=== PATIENT | female | born 1985 | race Caucasian/White ===

== ENCOUNTER 2018-04-27 09:41 | Outpatient (CLI) | payer OTHER ==
[~2018-04-27] VITALS: Ht 157.5 cm; Wt 95.5 kg
[2018-04-27 09:46] VITALS: BP 129/82; PULSE 94; RESP 16; Ht 157.5 cm; Wt 95.5 kg
--- NOTE | 2018-04-27 11:04 | TRIAGE ---
OB Triage Datetime Report Generated by CPN: 04/27/2018 11:03 Datetime: 04/27/2018 10:56 Pattern: Normal: <= 5 Contractions in 10 Minutes Resting Tone [place]: Relaxed Contraction Comments: no uc Heart Rate FHR Baseline Rate: 145 Monitor Mode: External US Variability: Moderate 6-25 bpm Accelerations: 15X15 Decelerations: None Category: Category I Pain Assessment Pain Presence: None/Denies Pain Type: N/A Datetime: 04/27/2018 10:06 Labor Evaluation Frequency: x1 Monitor Mode: External Duration (sec)2399: 50 Quality: Mild Pattern: Normal: <= 5 Contractions in 10 Minutes Resting Tone [place]: Relaxed Heart Rate FHR Baseline Rate: 145 Monitor Mode: External US Variability: Moderate 6-25 bpm Decelerations: None Category: Category I Pain Assessment Pain Presence: None/Denies Pain Type: N/A Datetime: 04/27/2018 09:49 Assessment Type: Triage Maternal Assessment Level of Consciousness: Fully Conscious DTR's/Clonus: DTRs 2+; No Clonus Headache: Denies Blurred Vision: No Respiratory Effort: Unlabored; Regular Rhythm; Equal Expansion Breath Sounds, Left: Clear and Equal Breath Sounds, Right: Clear and Equal Nausea/Vomiting: Denies RUQ Epigastric Pain: Denies Lower Extremities Edema: None Degree: None Upper Extremities Edema: None Degree: None Facial Edema: None Fall Risk Assessment History of Falling: (0) No Secondary Diagnosis: (0) No Ambulatory Aid: (0) Bedrest/Nurse Assist IV Therapy: (0) No Gait: (0) Normal/Bedrest/Immobile Mental Status: (0) Oriented to Own Ability Fall Score: 0 Fall Risk Score Definition: No Risk: No action required Datetime: 04/27/2018 09:48 Time of Arrival: 04/27/2018 09:31 EGA: 37.0 Arrived By: Ambulatory Arrived From: Office Chief Complaint: pt. came to ob triage from md office for r/o pih due to bp 128/98 @ office, pt. de ny MAGANA, deny dizziness, deny epigastric pain Movement: Present Contractions: Denies/Absent Rupture of Membranes: Denies Vaginal Bleeding: None Vaginal Discharge: Denies Recent Sexual Intercouse: Denies Abdominal Trauma: Not Applicable Patient Complaints: None Time Provider Notified: 04/27/2018 09:50 Provider Notified: clifton Initial Plan: cbc, cmp, uric acid, ua, bpp
--- NOTE | 2018-04-27 16:13 | PN ---
Triage Information Date/Time Reason for visit: Patient sent from primary OB office for elevated blood pressure Weeks of Gestation 37 weeks /Para Diabetes: none Additional information 33-year-old single intrauterine at 37 weeks with a VIDA of 05/18/2018 referred from her primary OB office for further management. She had one elevated blood pressure in office today. She states all her blood pressure during where within normal limit. She states good movement. She denies nausea, vomiting, shortness of breath, chest pain, headache, visual changes, vaginal bleeding or LOF. Objective Vital Signs Date Temp Pulse Resp B/P (MAP) Pulse Ox O2 O2 Flow FiO2 Time Delivery Rate 04/27/18 97.0 94 16 129/82 09:46 (98) Heart Rate: 140's Contractions: None Results/Medications Result Diagram: 04/27/18 1016 04/27/18 1016 Results 24 hrs Laboratory Tests Test 04/27/18 09:50 04/27/18 10:16 Urine Color YELLOW Urine Clarity CLEAR Urine pH 6.0 Urine Specific [place] 1.011 Urine Ketones NEGATIVE Urine Nitrite NEGATIVE Urine Bilirubin NEGATIVE Urine Urobilinogen NEGATIVE Urine Leukocyte Esterase 1+ H Urine Microscopic RBC 0 Urine Microscopic WBC 3 Urine Squamous Epithelial Cells FEW Urine Bacteria FEW A Urine Hemoglobin NEGATIVE Urine Glucose NEGATIVE Urine Total Protein NEGATIVE White Blood Count 13.6 H Red Blood Count 4.44 Hemoglobin 12.1 Hematocrit 37.5 Mean Corpuscular Volume 84.5 Mean Corpuscular Hemoglobin 27.3 L Mean Corpuscular Hemoglobin Concent 32.3 Red Cell Distribution Width 15.8 H Platelet Count 168 Mean Platelet Volume 11.9 H Immature Granulocytes % 1.200 H Neutrophils % 78.5 H Lymphocytes % 11.1 L Monocytes % 8.4 Eosinophils % 0.5 Basophils % 0.3 Nucleated Red Blood Cells % 0.0 Immature Granulocytes # 0.160 H Neutrophils # 10.7 H Lymphocytes # 1.5 Monocytes # 1.1 H Eosinophils # 0.1 Basophils # 0.0 Nucleated Red Blood Cells # 0.0 Sodium Level 139 Potassium Level 4.3 Chloride Level 108 Carbon Dioxide Level 23 Anion Gap 8 Blood Urea Nitrogen 8 Creatinine 0.45 Est Glomerular Filtrat Rate mL/min > 60 Glucose Level 94 Uric Acid 4.7 Calcium Level 8.7 Total Bilirubin 0.0 L Direct Bilirubin 0.00 Indirect Bilirubin 0.0 Aspartate Amino Transf (AST/SGOT) 21 Alanine Aminotransferase (ALT/SGPT) 21 Alkaline Phosphatase 128 H Total Protein 7.5 Albumin 3.6 Globulin 3.90 H Albumin/Globulin Ratio 0.92 Assessment/Plan 33-year-old with single intrauterine at 37 weeks had one elevated blood pressure in her primary OB office. She referred to triage for further evaluation. CBC, CMP, uric acid performed which all were within normal limits. Urinalysis with no wall urine protein. All her blood pressure in triage were within normal limits. heart rate is category 1. She has no uterine contraction. Sign and symptom of labor, preeclampsia, kick count discussed with patient in detail. She expressed understanding. All of her questions answered. She discharged home in stable condition. I strongly recommend follow-up with her primary OB tomorrow to repeat her blood pressure. ESME ESPANA Apr 27, 2018 16:13
== END 2018-04-27 11:07 | disposition home or self-care (01) ==
LOC: OBT 09:41 → L-D 09:43 → OBT 11:07
PROVIDERS: ATTEND Obstetrics & Gynecology
DX: O26.893 Other specified pregnancy related conditions, third trimester (principal); R03.0 Elevated blood-pressure reading, without diagnosis of hypertension; Z3A.37 37 weeks gestation of pregnancy
CPT/HCPCS: 76818; 80053; 81001; 84560; 85025; Z7500; G0463

== ENCOUNTER 2018-05-12 04:40 | Inpatient (IN) | payer OTHER ==
[~2018-05-12] VITALS: Ht 157.5 cm; Wt 100.0 kg
[2018-05-12] MEDS ORDERED: OXYTOCIN 30 UNITS/LR 500 ML IV PRN ×2 (05:00→09:30)
[2018-05-12] MEDS ORDERED: LACTATED RINGER'S 1,000 ML IV ONE (05:00)
[2018-05-12] MEDS ORDERED: CARBOPROST 250 MCG INJ IM PRN ×2 (05:00→09:30)
[2018-05-12] MEDS ORDERED: MISOPROSTOL 200 MCG TAB PR PRN ×2 (05:00→09:30)
[2018-05-12] MEDS ORDERED: CEFAZOLIN 2 GM/50 ML (PMX) 50 ML IVPB SCH (05:00)
[2018-05-12] MEDS ORDERED: OXYTOCIN 30 UNITS/LR 500 ML IV SCH ×2 (05:00→09:03)
[2018-05-12] MEDS ORDERED: METHYLERGONOVINE 0.2 MG INJ IM PRN ×2 (05:00→09:30)
[2018-05-12 05:01] VITALS: Ht 157.5 cm; Wt 100.0 kg
[2018-05-12 05:09] VITALS: BP 116/71; PULSE 86; RESP 18
[2018-05-12] MEDS ORDERED: OXYTOCIN 30 UNITS/LR 500 ML BAG IV ONE (07:00)
[2018-05-12] MEDS ORDERED: EPHEDrine SULFATE 50 MG/5 ML SYG ONE (07:00)
--- NOTE | 2018-05-12 07:10 | PREAC ---
Date/Time of Note Date/Time of Note DATE: 05/12/18 TIME: 07:10 Anesthesia Eval and Record Evaluation Time Pre-Procedure Interview DATE: 05/12/18 TIME: 07:10 Age 33 Sex female NPO: 8 hrs Preoperative diagnosis Planned procedure repeat c/s Past Medical History Past Medical History: Includes GI: Morbid obesity Surgery & Anesthesia Issues No known issue Meds Anticoagulation: No Beta Tae within 24 hr: No Reason Beta Tae not given: Pt. not on B-Tae No Active Prescriptions or Reported Meds Current Medications Cefazolin Sodium/ Dextrose 50 ml @ 100 mls/hr ONCE IVPB ; Start 05/12/18 at 05:00 Oxytocin/Lactated Ringer's 500 ml @ 125 mls/hr POST IV ; Start 05/12/18 at 05:00 Oxytocin/Lactated Ringer's 500 ml @ 0 mls/hr ONCE PRN IV VAGINAL BLEEDING; Start 05/12/18 at 05:00 Methylergonovine Maleate (Methergine) 0.2 mg ONCE PRN IM VAGINAL BLEEDING; Start 05/12/18 at 05:00 Carboprost Tromethamine (Hemabate) 250 mcg ONCE PRN IM VAGINAL BLEEDING; Start 05/12/18 at 05:00 Misoprostol (Cytotec) 1,000 mcg ONCE PRN MO VAGINAL BLEEDING; Start 05/12/18 at 05:00 Meds reviewed: Yes Allergies Coded Allergies: No Known Allergy (Unverified , 05/12/18) Allergies Reviewed: Yes Labs/Studies Labs Reviewed: Reviewed by anesthesiologist Result Diagram: 05/12/18 0520 Laboratory Tests 05/12/18 05:20 test: Positive Pre-procedure Exam Last vitals Vital Signs Date Temp Pulse Resp B/P (MAP) Pulse Ox O2 O2 Flow FiO2 Time Delivery Rate 05/12/18 98.3 86 18 116/71 Room Air 05:09 (86) Airway: Adequate mouth opening, Adequate thyromental dist Mallampati: Mallampati II Teeth: Normal Lung: Normal Heart: Normal ASA Physical Status ASA physical status: 2 Emergency: None Planned Anesthetic Neuraxial: Spinal Planned Pain Management Sub-arachniod narcotics Pre-operative Attestations Prior to commencing anesthesia and surgery, the patient was re-evaluated, there was verification of: *The patient's identity *The results of appropriate recent lab work and preoperative vital signs *The above evaluation not changing prior to induction *Anesthetic plan, risk benefits, alternative and complications discussed with patient/family; questions answered; patient/family understands, accepts and wishes to proceed. CRISTY SUAREZ May 12, 2018 07:10
[2018-05-12] MEDS ORDERED: ONDANSETRON 4 MG INJ IV STA (07:15)
[2018-05-12] MEDS ORDERED: ONDANSETRON 4 MG INJ ONE (07:19)
[2018-05-12] MEDS ORDERED: FAMOTIDINE 20 MG INJ ONE (07:19)
[2018-05-12] MEDS ORDERED: FENTAnyl 50 MCG/ML VIAL IV PRN ×3 (07:30)
[2018-05-12] MEDS ORDERED: HYDROmorphONE 1 MG/5 ML IV SYRINGE IV PRN ×3 (07:30)
[2018-05-12] MEDS ORDERED: FAMOTIDINE 20 MG INJ IV ONE (07:30)
[2018-05-12] MEDS ORDERED: NALOXONE (0.4 MG/ML) INJ IV PRN (07:30)
[2018-05-12] MEDS ORDERED: HYDROmorphONE 0.5 MG/0.5 ML SYG IV PRN ×2 (07:30)
[2018-05-12] MEDS ORDERED: DIPHENHYDRAMINE 50 MG INJ IV PRN ×2 (07:30)
[2018-05-12] MEDS ORDERED: ONDANSETRON 4 MG INJ IV PRN ×2 (07:30)
[2018-05-12] MEDS ORDERED: ALBUTEROL 0.083% (NEB) 2.5 MG/3 ML AMP HHN PRN (07:30)
[2018-05-12] MEDS ORDERED: KETOROLAC 30 MG INJ IV PRN (07:30)
[2018-05-12] MEDS ORDERED: METOCLOPRAMIDE 10 MG INJ IV PRN (07:30)
[2018-05-12] MEDS ORDERED: morphine SULFATE/PF (10 MG/10 ML) INJ ONE (07:40)
[2018-05-12] MEDS ORDERED: PHENYLephrine (100 MCG/ML) 5ML SYG ONE ×2 (07:55→08:18)
--- NOTE | 2018-05-12 09:02 | OPPN ---
Date/Time of Note Date/Time of Note DATE: 05/12/18 TIME: 08:55 Operative Report Planned Procedure Procedure date May 12, 2018 Procedure(s) repeat low transverse CD with btl pomoroy method Performed by see signature line Fixing Machine Operator: ERIN KWONG MD 2nd Fixing Machine Operator none Pre-procedure diagnosis iup at 39 wks ga, previous CD X 2 desire elective repeat CD with btl [id number] Anesthesia Type: Wzhjw2n spinal Post-Procedure Post-procedure diagnosis same Findings a viable male 9/9 weight 3605 grams, normal uterus tubes and ovaries Estimated Blood Loss: 500 - 600 mls Specimen(s) portion of right and left fallopian tube Grafts/Implant(s) none Complication(s) none ISABEL MONTGOMERY MD May 12, 2018 09:02
--- NOTE | 2018-05-12 09:15 | PREOPHP ---
DATE OF ADMISSION: 05/12/2018 HISTORY OF PRESENT ILLNESS: Ms. Susan Griffin is a 33-year-old 3, para 2, EDC 05/18/2018, ad mitted today for elective repeat delivery with bilateral tubal sterilization. She denies an y contractions, vaginal bleeding, or discharge. She reports good movement. Her care took place at [facility]. PAST MEDICAL HISTORY: None. MEDICATIONS: vitamins. PAST SURGICAL HISTORY: x2 previous C-sections. OBSTETRIC HISTORY: x2 previous C-sections. GYNECOLOGIC HISTORY: 13, regular 3 to 4 days. Denies any sexually transmitted disease. Sexually ac tive with 1 partner. SOCIAL HISTORY: Denies any smoking, drugs or alcohol. FAMILY HISTORY: None. REVIEW OF SYSTEMS: All within normal except history of present illness. PHYSICAL EXAMINATION: HEENT: Within normal. LUNGS: CTA. CARDIOVASCULAR: S1, S2, regular rhythm. ABDOMEN: Gravid, nontender. Negative CVA bilateral. EXTREMITIES: Negative edema. No calf tenderness. PELVIC: Vaginal exam deferred. heart tracing category 1. Nankin: Occasional contractions. ASSESSMENT: Intrauterine at 39 weeks and 1 day gestational age, previous x2, merirtt ires elective repeat delivery with bilateral tubal ligation, declines vaginal after valentin ibarra. PLAN: Consent for repeat delivery with bilateral tubal ligation. Risks, benefits and alter natives explained. All questions were answered. Dictated By: ISABEL BURROWS/NTS Conf#: [id number] DID#: [id number] CC: ISABEL MONTGOMERY MD;*End*
[2018-05-12] MEDS ORDERED: NACL 0.9% 3 ML SYG IV SCH (09:30)
--- NOTE | 2018-05-12 09:57 | PAC ---
Date/Time of Note Date/Time of Note DATE: 05/12/18 TIME: 09:57 Post-Anesthesia Notes Post-Anesthesia Note Last documented vital signs Vital Signs Date Temp Pulse Resp B/P (MAP) Pulse Ox O2 O2 Flow FiO2 Time Delivery Rate 05/12/18 98.3 86 18 116/71 Room Air 05:09 (86) Activity: WNL Respiratory function: WNL Cardiovascular function: WNL Mental status: Baseline Pain reasonably controlled: Yes Hydration appropriate: Yes Nausea/Vomiting absent: Yes CRISTY SUAREZ May 12, 2018 09:57
[2018-05-12] MEDS: KETOROLAC 30 MG INJ IV PRN ×2 (11:20→21:52)
[2018-05-12 11:50] VITALS: BP 111/62; PULSE 81; RESP 18
[2018-05-12 12:50] VITALS: BP 118/62; PULSE 80; RESP 20
[2018-05-12 16:00] VITALS: BP 100/54; RESP 20
[2018-05-12] MEDS: CEFAZOLIN 2 GM/50 ML (PMX) 50 ML IVPB SCH (16:49)
[2018-05-12 20:35] VITALS: BP 105/60; PULSE 101; RESP 18
[2018-05-12] MEDS: LACTATED RINGER'S 1,000 ML IV SCH (21:55)
[2018-05-13 00:30] VITALS: BP 107/62; PULSE 92; RESP 18
[2018-05-13] MEDS: CEFAZOLIN 2 GM/50 ML (PMX) 50 ML IVPB SCH ×2 (00:31→01:30)
[2018-05-13 04:00] VITALS: BP 103/61; PULSE 100; RESP 18
[2018-05-13] MEDS: LACTATED RINGER'S 1,000 ML IV SCH ×2 (05:47→14:00)
[2018-05-13] MEDS: KETOROLAC 30 MG INJ IV PRN (05:47)
[2018-05-13 08:00] VITALS: BP 97/62; PULSE 104; RESP 18
[2018-05-13] MEDS ORDERED: CEFAZOLIN 2 GM/50 ML (PMX) 50 ML IVPB SCH (08:42)
[2018-05-13] MEDS: IBUPROFEN 600 MG TAB PO SCH ×3 (11:30→23:29)
--- NOTE | 2018-05-13 13:22 | OPR ---
DATE OF OPERATION: 05/12/2018 PREOPERATIVE DIAGNOSES: Intrauterine at 39 weeks gestational age, previous , michelle res elective repeat delivery with bilateral tubal ligation. POSTOPERATIVE DIAGNOSES: Intrauterine at 39 weeks gestational age, previous , merritt ires elective repeat delivery with bilateral tubal ligation. OPERATION PERFORMED: Repeat low transverse delivery with bilateral tubal ligation. SURGEON: Brian Campbell MD TEENAGE PROGRAM DIRECTOR: Dr. Penny. ANESTHESIA: Spinal. COMPLICATIONS: None. ESTIMATED BLOOD LOSS: 500 mL. FINDINGS: A viable male, 9 and 9 respectively at 1 and 5 minutes, weight 3605 grams. Normal u terus, tubes and ovaries. DESCRIPTION OF PROCEDURE: After explaining the risks, benefits and alternatives, the patient and con sent signed in chart, the patient was taken to the operating room where spinal anesthesia was found t o be adequate. She was then prepared and draped in normal sterile fashion in dorsal supine position with a leftward tilt. A Pfannenstiel skin incision was then made with a scalpel and carried to the u nderlying of the fascia. The fascia was incised in midline, incision was extended laterally with August o scissors. The superior aspect of the fascial incision was grasped with curved clamps, elevated and the underlying rectus muscles dissected off bluntly. Attention was then turned to the inferior aspe ct of the incision which in similar fashion was grasped, tented with curved clamps and the rectus mus cles dissected off bluntly. The rectus muscle was in midline, peritoneum identified, grasp ed with pickups, entered sharply with Metzenbaum scissors. The peritoneal incision was extended supe riorly with good visualization of the bladder. The bladder blade was then inserted and the vesicoute rine peritoneum identified, grasped with pickups and entered sharply with Metzenbaum scissors. This incision was extended laterally. The bladder flap created digitally. The bladder blade was then tania nserted and the lower segment incised in transverse fashion with the scalpel. The uterine incision w as extended laterally. The bladder blade was removed and the 's head delivered atraumatically. The nose and mouth were suctioned and cord clamped and cut. The was handed off to [facility] p ediatrician. The placenta was then removed. The uterus exteriorized and cleared, cleared of all jeremy ts and debris. The uterine incision was repaired with 1-0 chromic in a running locked fashion. A se cond layer of same suture was used for imbrication obtaining excellent hemostasis. At this point, a Jennie was used to clamp the left fallopian tube 4 cm from the corneal region. A 3 cm segment of th e tube was ligated with a free tie of plain gut and excised x2. Good hemostasis was noted. Similarl y, the right fallopian tube was ligated, a 3 cm segment was excised in similar fashion. Excellent he mostasis was noted. The uterus was returned to the abdomen. The gutters were cleared of all clots. The peritoneum and rectus abdominis muscles reapproximated with 3-0 Vicryl in interrupted fashion. The fascia was reapproximated with 0 Vicryl in a running fashion. The subcutaneous tissue was reappr oximated with 2-0 plain gut in a running fashion. The skin was closed with absorbable lois. The patient tolerated procedure well. Sponge, lap, needle counts were correct. The patient was taken to recovery room in stable condition. PATHOLOGY: A portion of the right and left fallopian tube. Dictated By: BRIAN BURROWS/RAE Conf#: [id number] DID#: [id number]
[2018-05-13] MEDS: OXYCODONE/ACETAMINOPHEN (5/325) TAB PO PRN (15:32)
[2018-05-13 15:39] VITALS: BP 105/59; PULSE 93; RESP 18
[2018-05-13 19:40] VITALS: BP 126/81; PULSE 100; RESP 18
[2018-05-13] MEDS ORDERED: BISACODYL 10 MG SUPP PR ONE (21:00)
--- NOTE | 2018-05-13 22:17 | QN ---
Documentation Comment progress note pod 1 patient seen and evaluated no complaints vs stable afebrile ab c/d/i no distention extremity no edema no calf tenderness a/ sp cd with btl pod 1 stable afebrile p/ encourage ambulation iron supplement ISABEL MONTGOMERY MD May 13, 2018 22:17
[2018-05-14] MEDS: OXYCODONE/ACETAMINOPHEN (5/325) TAB PO PRN ×4 (01:18→20:19)
[2018-05-14 03:39] VITALS: BP 133/66; PULSE 91; RESP 18
[2018-05-14] MEDS: IBUPROFEN 600 MG TAB PO SCH ×4 (05:30→23:39)
[2018-05-14 08:00] VITALS: BP 117/60; PULSE 97; RESP 20
[2018-05-14] MEDS: FERROUS SULFATE (EC) 325 MG TAB PO SCH ×2 (09:26→20:19)
--- NOTE | 2018-05-14 11:30 | QN ---
Documentation Comment rogress note pod 2 patient seen and evaluated no complaints vs stable afebrile ab c/d/i no distention extremity no edema no calf tenderness a/ sp cd with btl pod 2 stable afebrile p/ encourage ambulation discharge home tomorrow ISABEL MONTGOMERY MD May 14, 2018 11:30
--- NOTE | 2018-05-14 11:31 | PD.PPDC ---
DRAWING CHECKER Discharge Instruction Condition [id number] Patient Condition: Pudnp2b Good Diet [id number] Diet: Tkicr4b Resume Regular Diet Activity/Restrictions [id number] Activity: Uevkn2p Normal Activity May Shower [id number] Restrictions: Hfnvu9t No Exercising No Lifting No Driving No Sexual Activity Nothing in the Vagina No [place] No Tampons, douche Wound/Drain Care Instructions [id number] Wound/Drain Care Instructions: Zfjqt9d Wash with soap and water Keep clean and dry Follow-up Follow-up with Physician: 2, Week/Weeks Return to clinic for [id number] WINDOWS SERVER ADMINISTRATOR Instructions: Ptylc3z Fever greater than 101 Chills Worsening abdominal pain Excessive Vaginal Bleeding More than 2 pads per hour Unable to tolerate diet Azfuu5On OB Instructions: Mtppk8w Breast Tenderness Depression Blurried Vision Headache [id number] Surgical Instructions: Ufjcm9u Incisional Drainage Incisional Redness ISABEL MONTGOMERY MD May 14, 2018 11:31
[2018-05-14 15:25] VITALS: BP 113/64; PULSE 97; RESP 20
[2018-05-14 20:10] VITALS: BP 102/57; PULSE 96; RESP 18
--- NOTE | 2018-05-14 22:09 | DS ---
DATE OF ADMISSION: 05/12/2018 DATE OF DISCHARGE: 05/14/2018 PRIMARY DIAGNOSES: Intrauterine at 39 weeks gestational age, previous , desires e lective repeat delivery with bilateral tubal ligation. PROCEDURE: Repeat low transverse delivery with bilateral tubal ligation. CONDITION ON DISCHARGE: Stable. ACTIVITY: None per vagina, no lifting x6 weeks. DIET: Regular. MEDICATIONS ON DISCHARGE 1. Motrin. 2. Iron. DISCHARGE SUMMARY: Ms. Susan Griffin underwent a repeat delivery with bilateral tubal ligat ion on 05/12/2018. She had a viable male, 9 and 9 respectively at 1 and 5 minutes, weight 3605 grams. She had an uneventful postop day 1 and 2. She was discharged on postop day 3. Her incision is clean, dry, intact. She is ambulating, tolerating diet, positive flatulence, positive bowel move ment. She will follow up in the clinic in 2 weeks for /postop care. Dictated By: ISABEL BURROWS/RAE Conf#: [id number] DID#: [id number]
[2018-05-15 04:32] VITALS: BP 114/69; PULSE 84; RESP 16
[2018-05-15] MEDS: IBUPROFEN 600 MG TAB PO SCH ×2 (06:06→11:20)
[2018-05-15 08:53] VITALS: BP 114/65; PULSE 90; RESP 18
[2018-05-15] MEDS: FERROUS SULFATE (EC) 325 MG TAB PO SCH (09:33)
--- NOTE | 2018-05-22 18:40 | CONS ---
Consultation Date/Type/Reason Admit Date/Time May 12, 2018 at 04:40 Initial Consult Date 05/13/18 Type of Consult Anesthesiology Reason for Consultation Follow up Date/Time of Note DATE: 05/22/18 TIME: 18:38 24 HR Interval Summary Free Text/Dictation Pt seen and examined at bedside on 05/13/18 POD#1 s/p repeat c/s with BTL. Pt received spinal duramorph for post op pain control. No N/V/MAGANA/Numbness in extremities. CRISTY SUAREZ May 22, 2018 18:40
== END 2018-05-15 13:11 | disposition home or self-care (01) | DRG 785 ==
LOC: L-D 04:40 → PP1 11:35
PROVIDERS: ADMIT Obstetrics & Gynecology; ATTEND Obstetrics & Gynecology
PROC: 0UL70ZZ Occlusion of Bilateral Fallopian Tubes, Open Approach (ICD-10-PCS; 2018-05-12)
PROC: 10D00Z1 Extraction of Products of Conception, Low, Open Approach (ICD-10-PCS; principal; 2018-05-12 07:30)
DX: O34.211 Maternal care for low transverse scar from previous cesarean delivery (principal); Z3A.39 39 weeks gestation of pregnancy; Z37.0 Single live birth; Z30.2 Encounter for sterilization
CPT/HCPCS: 85025; 85610; 85730; 86592; 86850; 86900; 86901; 87340; 88302; 99464; J0690; J1885; J2210; J2274; J2370; J2405; J2590; J3010; J7120